=== PATIENT | male | born 1985 | race Caucasian/White ===

== ENCOUNTER 2023-04-03 08:20 | Outpatient (AMB) | payer BC, SELFPAY ==
--- NOTE | 2023-04-03 08:30 | MHC.PC.OV ---
Vital Signs 04/03/23 08:32 Height 5 ft 11 in Weight 183 lb 0.2 oz BMI 25.5 BP 122/70 Blood Pressure Location Lt brachial Position Sitting Pulse 71 Pulse Source Pulse Oximeter Temp Source Skin Pulse Oximetry (%) 100 Oxygen Delivery Method Room Air Intake Visit Reasons: New patient-Requesting physical Magnetic Resonance Imaging Director Required: No Allergies No Known Allergies Allergy (Verified 04/03/23 08:42) Medication List - Last Reconciled 04/03/23 by NARAYAN Levi No Known Home Meds Tobacco use date assessed: 04/03/23 Dental Screening Dental Screen Date: 04/03/23 Did you have a dental visit in the last 12 months?: Yes Did you have a dental problem in the last 6 months where you did not have access to dental care?: No Was dental information given to patient?: Patient has dentist HPI New patient-Requesting physical HPI Details Patient is a 37-year-old male presents today for physical exam as a new patient. Previous PCP in [place] couple years ago. Today we discussed patient's need for tetanus vaccine. Dental exam up-to-date. Denies eye issues, does not see eye doctor. Patient reports drinking alcohol only on weekends, not problem for him. He reports right hand lateral aspect cramping since 2008 - status post surgery when holding things and stiffness, pain worse with activity. Numbness or tingling. He also reports left neck skin mole long time now, has irregular borders. Also reports family history of bad posture, reports grandmother with osteoporosis. No shortness of breath or chest pain. [facility] Surgical History History of hand surgery Family History Mother History of leukemia Father Hypertension Bilateral bunions Social History Housing: House Patient Tobacco Use Status: Never used Tobacco service: Yes Current occupational status: employed Cognitive needs: No Hearing needs: No Vision needs: No Questionnaire PHQ-9 Over the last 2 weeks, how often have you been bothered by any of the following problems? 1. Little interest or pleasure in doing things: not at all 2. Feeling down, depressed, or hopeless: not at all 3. Trouble falling or staying asleep, or sleeping too much: not at all 4. Feeling tired or having little energy: not at all 5. Poor appetite or overeating: not at all 6. Feeling bad about yourself - or that you are a failure or have let yourself or your family down: not at all 7. Trouble concentrating on things, such as reading the newspaper or watching television: not at all 8. Moving or speaking so slowly that other people could have noticed. Or the opposite - being so fidgety or restless that you have been moving around a lot more than usual: not at all 9. Thoughts that you would be better off or of hurting yourself in some way: not at all Total score: 0 Depression Screening Interpretation: Negative Depression Screening Done: Yes 53924 - PHQ-9 Billing: Yes Source: Developed by Drs. Rashad Hernandez, Anel Blackman, Albert Lira and colleagues, with an educational alejandro from [employer]. Thrive Questionnaire Date Thrive assessed: 04/03/23 I am a: Patient What is your living situation today?: I have a steady place to live Within the past 12 months, did the food you bought not last and you didn't have the money to get more?: Never true Within the past 12 months, did you worry whether your food would run out before you got money to buy more?: Never true Do you have trouble paying for medicines?: No Do you have trouble getting transportation to medical appointments?: No Do you have trouble paying your heating and electricity bill?: No Do you have trouble taking care of your child, family member or friend?: No Do you have trouble with day-to-day activities such as bathing, preparing meals, shopping, managing finances, etc.?: No Are you currently unemployed and looking for a job?: No Are you interested in more education?: No Currently or been in a relationship where the following occur: no concerns reported AUDIT C Alcohol Use Questionnaire (AUDIT-C) 1. How often do you have a drink containing alcohol?: 2-4 times a month 2. How many drinks containing alcohol do you have on a typical day when you are drinking?: 3 or 4 3. How often do you have six or more drinks on one occasion?: Less than monthly Total Score: 4 Score Reviewed/Action Taken: Yes SHAREE-7 AMB Questionnaire SHAREE-7 Date SHAREE - 7 assessed: 04/03/23 Feeling nervous, anxious, or on edge: 0 = Not at all Not being able to stop or control worryin = Not at all Worrying too much about different things: 0 = Not at all Trouble relaxin = Not at all Being so restless that it is hard to sit still: 0 = Not at all Becoming easily annoyed or irritable: 0 = Not at all Feeling afraid as if something awful might happen: 0 = Not at all Total SHAREE-7 score (0-4 normal; 5-9 mild; 10-14 moderate; 15-21 severe): 0 Source: Developed by Drs. Rashad Hrenandez, Anel Blackman, Albert Lira and colleagues, with an educational alejandro from [employer]. SHAREE-7 Assessment Billing SHAREE-7 Assessment Tool: SHAREE-7 Assessment 93317 Review of Systems Const Denies body aches, Denies chills, Denies fever(s) and Denies headache(s) Eyes Denies change in vision ENT Denies dizziness, Denies otalgia, Denies headache(s), Denies nasal discharge, Denies sinus pain and Denies sore throat Card Denies chest pain, Denies edema, Denies lightheadedness and Denies dyspnea Resp Denies cough, Denies dyspnea and Denies wheezing GI Denies abdominal pain, Denies constipation, Denies diarrhea, Denies nausea and Denies vomiting Denies dysuria Musc Reports as per HPI, Denies myalgias, Reports arthralgias, Denies joint swelling, Denies numbness and Denies tingling Skin/Breast Reports rash Neuro Denies dizziness, Denies headache(s), Denies numbness and Denies tingling Aller/Immun Denies wheezing Physical exam (Primary Care) Vital Signs: Last Vital Signs Pulse 71 04/03/23 08:32 BP 122/70 04/03/23 08:32 Pulse Ox 100 04/03/23 08:32 Oxygen Delivery Method Room Air 04/03/23 08:32 BMI result Body Mass Index 25.5 Tobacco/Smoking Status: Tobacco use Status Tobacco use date assessed 04/03/23 04/03/23 08:38 Patient Tobacco Use Status Never used Tobacco 04/03/23 08:38 PHQ-9: PHQ-9 Score PHQ-9: Total score 0 04/03/23 08:58 Depression Screening Interpretation: Negative Thrive Assessment: Date of Thrive Assessment Date Thrive assessed 04/03/23 04/03/23 08:38 Currently or been in a relationship where the following occur: no concerns reported Const General: cooperative and no acute distress Orientation/consciousness: patient oriented x3 HENMT Head: Yes normocephalic and Yes atraumatic Ears: TM's normal bilaterally Face and sinus: Yes sinuses nontender Mouth: oropharynx normal and moist mucous membranes Throat: Yes posterior oropharynx normal Eyes General: appearance normal, both eyes and all related structures Pupils: Equal, round and reactive pupils present EOM: EOMs intact bilaterally Neck Neck: Yes normal visual inspection, Yes full ROM and Yes no lymphadenopathy Thyroid: Thyroid normal Resp Effort & Inspection: normal respiratory effort and able to speak in complete sentences Auscultation: clear to auscultation bilaterally, no crackles, no rales, no rhonchi and no wheezes Cardio Rate: regular rate Rhythm: regular rhythm Heart sounds: S1 normal heart sound present, S2 normal heart sound present and no murmurs GI Palpation (GI): Soft to palpation, not firm, nontender, no guarding, not rigid and no hepatosplenomegaly Auscultation: normal bowel sounds General: No CVA tenderness Back/Spine/Pelvis Back: No CVA tenderness Skin Other: Left neck skin mole with irregular borders about 5mm in diameter Neuro General: patient oriented x3 Cranial nerves: Yes Equal, round and reactive pupils present Gait exam (Neuro): Normal gait present Extrem Other: Right hand normal to inspection, nontender, skin is intact General: Yes full ROM and No edema Immunizations Boostrix Tdap 2.5 Lf unit-8 mcg-5 Lf/0.5 mL intramuscular syringe Performing Provider: NARAYAN Levi [facility] Administered by: ANAIS Menendez on 04/03/23 08:58 Dose Route Admin Location Dispensed Lot Number Expiration Date NDC Development Writer 0.5 mL IM Left Deltoid 0.5 mL [id number] 07/03/25 [id number] nap- Naturally Attached Parents VIS Given Date VIS Provided VIS Publication Date 04/03/23 Single Vaccine 21 Eligibility Eligibility Date Funding Source Not [facility] Eligible 04/03/23 Private Assessment and Plan Assessment & Plan (1) Skin mole: Code(s): D22.9 - Melanocytic nevi, unspecified Plan: Dermatology referral for an evaluation and treatment (2) Right hand pain: Code(s): M79.641 - Pain in right hand Plan: Will obtain x-ray OT referral (3) Adult general medical exam: Code(s): Z00.00 - Encounter for general adult medical examination without abnormal findings Plan: Repeat in 1 year Blood work ordered Orders: Orders Vitamin D 25-OH Total 04/03/23 Z00.00 - Encounter for general adult medical examination without abnormal findings Vitamin B12 and Folate 04/03/23 Z00.00 - Encounter for general adult medical examination without abnormal findings Lipid Panel 04/03/23 Z00.00 - Encounter for general adult medical examination without abnormal findings XR hand RT min 3V 04/03/23 M79.641 - Pain in right hand TSH reflex Free T4 04/03/23 Z00.00 - Encounter for general adult medical examination without abnormal findings Comprehensive [place]. Panel Fast 04/03/23 Z00.00 - Encounter for general adult medical examination without abnormal findings Complete Blood Count Auto Diff 04/03/23 Z00.00 - Encounter for general adult medical examination without abnormal findings OT Evaluation and Treatment 04/03/23 M79.641 - Pain in right hand TDaP Immunization 04/03/23 Z23 - Encounter for immunization Referrals Dermatology Referral D22.9 - Melanocytic nevi, unspecified Coding Level of Care Code New Pt Prev Care 18-39yr(40291 Diagnoses Skin mole D22.9 Right hand pain M79.641 Adult general medical exam Z00.00 Additional Codes SHAREE-7 Assessment Billing - SHAREE-7 Assessment Tool: SHAREE-7 Assessment [id number] ([id number])
[2023-04-03 08:32] VITALS: BP 122/70; PULSE 71; O2SAT 100; BMI 25.5
== END 2023-04-03 09:10 | disposition home or self-care (01) ==
PROVIDERS: PCP Nurse Practitioner Family; Visit Provider Nurse Practitioner Family
DX: D22.9 Melanocytic nevi, unspecified (principal); M79.641 Pain in right hand; Z00.00 Encounter for general adult medical examination without abnormal findings
CPT/HCPCS: 90471; 90715; 99385

== ENCOUNTER 2023-08-17 13:05 | Outpatient (AMB) | payer BC, SELFPAY ==
--- NOTE | 2023-08-17 13:07 | MHC.PC.OV ---
Vital Signs 08/17/23 13:22 Height 5 ft 11 in Weight 177 lb 8 oz BMI 24.8 BP 125/73 Blood Pressure Location Rt brachial Position Sitting Respiration 12 Pulse 72 Pulse Source Pulse Oximeter Temp 98.8 F Temp Source Temporal Artery Scan Pulse Oximetry (%) 100 Intake Visit Reasons: Transfer of Care from DARIEN August/Chris review Intake Note: Patient is here for a transfer of care from Dr. August in [place]. Patient reports he was referred to dermatology as well as an xray order and he did not completes those things. Credit Reporting Clerk Required: No Accompanied by: Self / Same As Patient Allergies No Known Allergies Allergy (Verified 08/17/23 13:49) Tobacco use date assessed: 08/17/23 Dental Screening Dental Screen Date: 08/17/23 Did you have a dental visit in the last 12 months?: Yes Did you have a dental problem in the last 6 months where you did not have access to dental care?: No Was dental information given to patient?: Patient has dentist HPI HPI Comments History of Present Illness Details 37 year old M with Reyanuds, marijuana user otherwise well. Former [facility] Multiple joint injuries in the past some that required surgery. Health Maintenance: Vaccines: declines Flu, otherwise UTD Labs - none recent Specialists: Referred to Alina [facility] Here today to est care and for CPE Reports routine dental care No eye concerns [facility] Medical History No pertinent past medical history Surgical History History of hand surgery Family History Mother History of leukemia Mental health disorder Substance use disorder Father Hypertension Bilateral bunions Substance use disorder Social History Household Members: Spouse and Children Housing: House 75 years or older and lives alone: No Alcohol intake: current Alcohol intake frequency: holidays/special occasions only Patient Tobacco Use Status: Current everyday Tobacco user Tobacco use type: Smokeless Tobacco e-Cigarette/Vaping Use: Never Used Substance Use Type: Marijuana service: Yes Current occupational status: employed Current occupation: [employer] Sexual orientation: Straight/Heterosexual Gender identity: Male Cognitive needs: No Hearing needs: No Vision needs: No Questionnaire PHQ-9 Over the last 2 weeks, how often have you been bothered by any of the following problems? 1. Little interest or pleasure in doing things: not at all 2. Feeling down, depressed, or hopeless: not at all 3. Trouble falling or staying asleep, or sleeping too much: not at all 4. Feeling tired or having little energy: not at all 5. Poor appetite or overeating: not at all 6. Feeling bad about yourself - or that you are a failure or have let yourself or your family down: not at all 7. Trouble concentrating on things, such as reading the newspaper or watching television: not at all 8. Moving or speaking so slowly that other people could have noticed. Or the opposite - being so fidgety or restless that you have been moving around a lot more than usual: not at all 9. Thoughts that you would be better off or of hurting yourself in some way: not at all Total score: 0 Depression Screening Interpretation: Negative Depression Screening Done: Yes 94131 - PHQ-9 Billing: Yes Source: Developed by Drs. Rashad Hernandez, Anel Blackman, Albert Lira and colleagues, with an educational alejandro from [employer]. Thrive Questionnaire Date Thrive assessed: 08/17/23 I am a: Patient What is your living situation today?: I have a steady place to live Within the past 12 months, did the food you bought not last and you didn't have the money to get more?: Never true Within the past 12 months, did you worry whether your food would run out before you got money to buy more?: Never true Do you have trouble paying for medicines?: No Do you have trouble getting transportation to medical appointments?: No Do you have trouble paying your heating and electricity bill?: No Do you have trouble taking care of your child, family member or friend?: No Do you have trouble with day-to-day activities such as bathing, preparing meals, shopping, managing finances, etc.?: No Are you currently unemployed and looking for a job?: No Are you interested in more education?: No Please select the resources that you would like help with: None Currently or been in a relationship where the following occur: no concerns reported THRIVE Score: 0 AUDIT C Alcohol Use Questionnaire (AUDIT-C) 1. How often do you have a drink containing alcohol?: Monthly or less 3. How often do you have six or more drinks on one occasion?: Never Total Score: 1 SHAREE-7 AMB Questionnaire SHAREE-7 Date SHAREE - 7 assessed: 08/17/23 Feeling nervous, anxious, or on edge: 0 = Not at all Not being able to stop or control worryin = Not at all Worrying too much about different things: 0 = Not at all Trouble relaxin = Not at all Being so restless that it is hard to sit still: 0 = Not at all Becoming easily annoyed or irritable: 0 = Not at all Feeling afraid as if something awful might happen: 0 = Not at all Total SHAREE-7 score (0-4 normal; 5-9 mild; 10-14 moderate; 15-21 severe): 0 Source: Developed by Drs. Rashad Hernandez, Anel Blackman, Albert Lira and colleagues, with an educational alejandro from [employer]. SHAREE-7 Assessment Billing SHAREE-7 Assessment Tool: SHAREE-7 Assessment 55003 Review of Systems Const Details: Constitutional: Denies fever. Skin: Denies rash. Eye: Denies eye pain. ENMT: Denies sore throat and nasal congestion. Respiratory: Denies shortness of breath and cough. Gastrointestinal: Denies nausea, vomiting or abdominal pain. Cardiovascular: Denies chest pain and syncope. Genitourinary: Denies dysuria. Musculoskeletal: Chronic multi joint pain. History of multiple joint injuries. Neurologic: Denies headaches, confusion, and weakness. Psychiatric: Denies suicidal thoughts and substance abuse. Allergy/ Immunologic: Denies impaired immunity. Physical exam (Primary Care) Vital Signs: Last Vital Signs Temp 98.8 F 08/17/23 13:22 Pulse 72 08/17/23 13:22 Resp 12 08/17/23 13:22 BP 125/73 08/17/23 13:22 Pulse Ox 100 08/17/23 13:22 BMI result Body Mass Index 24.8 Tobacco/Smoking Status: Tobacco use Status Tobacco use date assessed 08/17/23 08/17/23 13:32 Patient Tobacco Use Status Current everyday Tobacco 08/17/23 13:37 Tobacco use type Smokeless Tobacco 08/17/23 13:37 e-Cigarette/Vaping Use Never Used 08/17/23 13:37 PHQ-9: PHQ-9 Score PHQ-9: Total score 0 08/17/23 13:47 Depression Screening Interpretation: Negative Thrive Assessment: Date of Thrive Assessment Date Thrive assessed 08/17/23 08/17/23 13:39 Currently or been in a relationship where the following occur: no concerns reported Const Other: General: Well developed, well nourished, in no acute distress. Appears stated age. Head: Normocephalic, atraumatic. Eyes: Pupils are equal, round and reactive to light and accommodation. Conjunctivae are clear. Vision grossly normal. Ears: TMs clear AU, EACS WNL Nose: Patent, without discharge. Mouth: There are no ulcers or lesions noted. No inflammation, no post nasal drip, no plaques nor exudates. Neck: Supple, no adenopathy or thyromegaly. Lungs: Clear to auscultation bilaterally. No rales, rhonchi or wheeze noted. Good air flow in all rothman. Heart: Regular rate and rhythm. No murmurs, click, rubs or gallops are noted. Abdomen: Bowel sounds present in all quadrants. The abdomen is soft, nontender, with no masses or organomegaly noted. No hernias are noted. Musculoskeletal: Joints are nontender, without swelling, redness, or effusions. Range of motion is observed to be normal. Pulses: Peripheral pulses are equal and palpable bilaterally. Extremities: No clubbing, cyanosis nor edema is noted. Neurologic: Gait and station normal. Cranial Nerves 2-12 intact. Motor strength grossly symmetrical and intact. No sensory loss. Balance normal. Skin: No rashes, ulcers, or lesions noted. Turgor is good. Skin color is good. Hair and nails are without abnormalities. Psych: Normal eye contact, affect and mood appropriate, and normal interactions. Patient is alert and appropriate to context. Assessment and Plan Assessment & Plan (1) Adult general medical exam: Code(s): Z00.00 - Encounter for general adult medical examination without abnormal findings (2) Laboratory exam ordered as part of routine general medical examination: Code(s): Z00.00 - Encounter for general adult medical examination without abnormal findings (3) Skin mole: Comment: Active referral in place for [facility]. Code(s): D22.9 - Melanocytic nevi, unspecified (4) Marijuana use: Comment: Current use. Code(s): F12.90 - Cannabis use, unspecified, uncomplicated Orders: Orders Microalbumin, Random (w Creat) Today Z00.00 - Encounter for general adult medical examination without abnormal findings TSH reflex Free T4 Today Z00.00 - Encounter for general adult medical examination without abnormal findings UA w Microscopic Today Z00.00 - Encounter for general adult medical examination without abnormal findings Comprehensive Taylor. Panel Fast Today Z00.00 - Encounter for general adult medical examination without abnormal findings Lipid Panel Today Z00.00 - Encounter for general adult medical examination without abnormal findings Patient Instructions: Health screenings for men ages 40 to 64 You should visit your health care provider regularly, even if you feel healthy. The purpose of these visits is to: Screen for medical issues Assess your risk for future medical problems Encourage a healthy lifestyle Update vaccinations and other preventive care services Help you get to know your provider in case of an illness Information Even if you feel fine, you should still see your provider for regular checkups. These visits can help you avoid problems in the future. For example, the only way to find out if you have high blood pressure is to have it checked regularly. High blood sugar and high cholesterol level also may not have any symptoms in the early stages. Simple blood tests can check for these conditions. There are specific times when you should see your provider or receive specific health screenings. The [place] Preventive Services Task Force publishes a list of recommended screenings. Below are screening guidelines for men ages 40 to 64. BLOOD PRESSURE SCREENING Have your blood pressure checked at least once every year. Watch for blood pressure screenings in your area. Ask your provider if you can stop in to have your blood pressure checked. Ask your provider if you need your blood pressure checked more often if: You have diabetes, heart disease, kidney problems, or are overweight or have certain other health conditions You have a first-degree relative with high blood pressure You are Black Your blood pressure top number is from 120 to 129 mm Hg, or the bottom number is from 70 to 79 mm Hg If the top number is 130 mm Hg or greater or the bottom number is 80 mm Hg or greater, this is considered stage 1 hypertension. Schedule an appointment with your provider to learn how you can lower your blood pressure. Effects of age on blood pressure CHOLESTEROL SCREENING Cholesterol screening should begin at age 35 for men with no known risk factors for coronary heart disease. Repeat cholesterol screening should take place: Every 5 years for men with normal cholesterol levels More often if changes occur in lifestyle (including weight gain and diet) More often if you have diabetes, heart disease, kidney problems, or certain other conditions COLORECTAL CANCER SCREENING If you are under age 45, talk to your provider about getting screened. You may need to be screened if you have a strong family history of colon cancer or polyps. Screening may also be considered if you have risk factors such as a history of inflammatory bowel disease or polyps. If you are age 45 to 75, you should be screened for colorectal cancer. There are several screening tests available: A stool-based fecal occult blood (gFOBT) or fecal immunochemical test (FIT) every year A stool sDNA test every 1 to 3 years Flexible sigmoidoscopy every 5 years or every 10 years with stool testing FIT done every year CT colonography (virtual colonoscopy) every 5 years Colonoscopy every 10 years You may need a colonoscopy more often if you have risk factors for colorectal cancer, such as: Ulcerative colitis A personal or family history of colorectal cancer A history of growths in your colon called adenomatous polyps DENTAL EXAM Go to the dentist once or twice every year for an exam and cleaning. Your dentist will evaluate if you have a need for more frequent visits. DIABETES SCREENING All adults who do not have risk factors for diabetes should be screened starting at age 35 and repeated every 3 years. If you have other risk factors for diabetes, such as a first degree relative with diabetes, overweight or obesity, high blood pressure, prediabetes, or a history of heart disease, you may be tested more often. If you are overweight and have other risk factors, such as high blood pressure and are planning to become , screening is recommended. EYE EXAM Have an eye exam every 2 to 4 years ages 40 to 54 and every 1 to 3 years ages 55 to 64. Your provider may recommend more frequent eye exams if you have vision problems or glaucoma risk. Have an eye exam that includes an examination of your retina (back of your eye) at least every year if you have diabetes. IMMUNIZATIONS Commonly needed vaccines include: Flu shot: get one every year COVID-19 vaccine: ask your provider what is best for you Tetanus-diphtheria and acellular pertussis (Tdap) vaccine: have as one of your tetanus-diphtheria vaccines if you did not receive it as an adolescent Tetanus-diphtheria: have a booster (or Tdap) every 10 years Varicella vaccine: receive 2 doses if you never had chickenpox or the varicella vaccine and were born in 1980 or after Hepatitis B vaccine: receive 2, 3, or 4 doses, depending on your exact circumstances, if you did not receive these as a child or adolescent, until age 59 Shingles (herpes zoster) vaccine: at or after age 50 Ask your provider if you should receive other immunizations, especially if you have certain medical conditions, such as diabetes or are at increased risk for some diseases such as pneumonia. INFECTIOUS DISEASE SCREENING Screening for hepatitis C: all adults ages 18 to 79 should get a one-time test for hepatitis C. Screening for human immunodeficiency virus (HIV): all people ages 15 to 65 should get a one-time test for HIV. Depending on your lifestyle and medical history, you may need to be screened for infections such as syphilis, chlamydia, and other infections. LUNG CANCER SCREENING You should have an annual screening for lung cancer with low-dose computed tomography (LDCT) if: You are age 50 to 80 years AND You have a 20 pack-year smoking history AND You currently smoke or have quit within the past 15 years OSTEOPOROSIS SCREENING If you are age 50 to 64 and have risk factors for osteoporosis, you should discuss screening with your provider. Risk factors can include long-term steroid use, low body weight, smoking, heavy alcohol use, having a fracture after age 50, or a family history of hip fracture or osteoporosis. Osteoporosis PHYSICAL EXAM All adults should visit their provider from time to time, even if they are healthy. The purpose of these visits is to: Screen for diseases Assess risk of future medical problems Encourage a healthy lifestyle Update vaccinations and other preventive care services Maintain a relationship with a provider in case of an illness Your height, weight, and body mass index (BMI) should be checked at every exam. During your exam, your provider may ask you about: Depression and anxiety Diet and exercise Alcohol and tobacco use Safety, such as use of seat belts and smoke detectors Your medicines and risk for interactions PROSTATE CANCER SCREENING If you're 55 through 69 years old, before having the test, talk to your provider about the pros and cons of having a PSA test. Ask about: Whether screening decreases your chance of dying from prostate cancer. Whether there is any harm from prostate cancer screening, such as side effects from testing or overtreatment of cancer when discovered. Whether you have a higher risk of prostate cancer than others. If you are age 55 or younger, screening is not generally recommended. You should talk with your provider about if you have a higher risk for prostate cancer. Risk factors include: Having a family history of prostate cancer (especially a brother or father) Being If you choose to be tested, the PSA blood test is repeated over time (yearly or less often), though the best frequency is not known. Prostate examinations are no longer routinely done on men with no symptoms. Prostate cancer SKIN EXAM Your provider may check your skin for signs of skin cancer, especially if you're at high risk. People at high risk include those who have had skin cancer before, have close relatives with skin cancer, or have a weakened immune system. TESTICULAR EXAM The [place] Preventive Services Task Force (USPSTF) now recommends against performing testicular self-exams. Doing testicular self-exams has been shown to have little to no benefit. Review Flu Vaccine not done: patient reason Coding Level of Care Code Est Pt Prev Care 18-39y(83347) Diagnoses Adult general medical exam Z00.00 Laboratory exam ordered as part of routine general medical examination Z00.00 Skin mole D22.9 Marijuana use F12.90 Additional Codes SHAREE-7 Assessment Billing - SHAREE-7 Assessment Tool: SHAREE-7 Assessment 78387 ([id number])
[2023-08-17 13:22] VITALS: BP 125/73; PULSE 72; RESP 12; TEMP 37.1; O2SAT 100; BMI 24.8
== END 2023-08-17 14:02 | disposition home or self-care (01) ==
PROVIDERS: PCP Nurse Practitioner Family; Visit Provider Nurse Practitioner Family
DX: Z00.00 Encounter for general adult medical examination without abnormal findings (principal); D22.9 Melanocytic nevi, unspecified; F12.90 Cannabis use, unspecified, uncomplicated
CPT/HCPCS: 99395

== ENCOUNTER 2023-08-24 08:49 | Outpatient (REF) | payer BC, SELFPAY ==
[2023-08-24 11:20] LABS: Appearance Urine Clear; Color Urine Yellow; Glucose Urine UA Negative (Negative); Leukocyte Esterase Urine Negative (Negative); Nitrite Urine Negative (Negative); Specific Gravity - Urine <= 1.005 (1.005-1.025); Urine Blood Negative (Negative); Urine Ketones Negative (Negative); Urine Protein Negative (Neg-Trace)
[2023-08-24 11:28] LABS: Bacteria Urine None Seen (None Seen); Hyaline Casts Urine 0-2 /LPF (0-2); RBC Urine 0-2 /HPF (0-2); Squamous Epithelial Cell Urine 0-2 /HPF (0-2); WBC Urine 0-5 /HPF (0-5)
[2023-08-24 12:11] LABS: Alanine Aminotransferase 27 U/L (0-40); Albumin Level 4.3 g/dL (3.5-5.0); Alkaline Phosphatase 84 U/L (39-117); Anion Gap 10 (12-20); Aspartate Amino Transferase 30 U/L (5-37); Bilirubin Total 0.3 mg/dL (0.0-1.0); Blood Urea Nitrogen 14 mg/dL (9-16); Calcium 9.3 mg/dL (8.4-10.2); Carbon Dioxide 30 mmol/L (22-29); Chloride 106 mmol/L (96-108); Cholesterol 139 mg/dL (<200); Estimated Glomerular Filt Rate > 60; Glucose Fasting 93 mg/dL (60-99); HDL Cholesterol 43 mg/dL (>40); LDL Cholesterol Calculated 87 mg/dL (<100); Potassium 4.3 mmol/L (3.3-5.1); Sodium 142 mmol/L (135-145); Total Protein 7.1 g/dL (6.5-8.0); Triglycerides 47 mg/dL (<150)
[2023-08-24 12:16] LABS: TSH reflex Free T4 1.67 uIU/mL (0.32-4.0)
[2023-08-24 12:49] LABS: Creatinine Urine 14.55 mg/dL; Microalbumin Urine < 5.0 mg/L
== END 2023-08-24 08:50 | disposition home or self-care (01) ==
LOC: HO.WFDLDS 08:49
PROVIDERS: Visit Provider Nurse Practitioner Family
DX: Z00.00 Encounter for general adult medical examination without abnormal findings (principal); Z13.6 Encounter for screening for cardiovascular disorders
CPT/HCPCS: 36415; 80053; 80061; 81001; 82043; 82570; 84443

== ENCOUNTER 2024-08-17 07:49 | Outpatient (AMB) | payer BC, SELFPAY ==
--- NOTE | 2024-08-17 07:52 | A.OFFPC_ITS ---
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 Former [place]. [facility] Multiple joint injuries in the past some that required surgery. s/p mole left neck removed - benign Specialists: Alina Gresham no longer ff'd OT - referral - The patient is a 38-year-old male pres enting for a complete physical examination. His past medical history includes Raynaud's phenomenon, a condition that limits blood flow, generally triggered by cold or emotional stress. There have been no significant changes or recent exacerbations noted. - He experiences persistent pain in his R hand that has not been addressed further since last discussed. The pain affects his ability to perform tasks, and he has contemplated applying for disability due to this issue. - During the past year, he has noticed i ncreased feelings of tiredness, particularly worsening by late afternoon after completing work activities and caring for his children. He attributes the fatigue and accompanying frustration to stress, raising the possibility of untreated ADHD. - He underwent removal of a benign skin lesion last year R neck - The patient's father recen tl due to a heart-related condition, though specific details are not known. The father led a reclusive lifestyle and had unhealthy eating habits. Past Surgical History - Benign skin lesion removal. Family History - Father: in June, possibly heart-related conditions. 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 Reports feeling irritation with the repetitive nature of his work. - Family: with children. Partici pates in morning routines and childcare. - Substance use: Reports marijuana use. - Exercise: Engages in daily exercise. - Nutrition: Father's dietary habits inc luded smoking and consuming frozen pizzas. Health Maintenance - Last laboratory results (from last yea r) were within normal limits. - Review of allergies and confirmation o f up-to-date immunizations. - Declined flu vaccination. Tdap UTD - Discussed potential for mental health evaluation and interventions for suspected ADHD. Reports routine dental care No eye concerns Review of Systems - Neurological: Reports tiredness and ea sy frustration, possibly related to stress. - Musculoskeletal: Denies new or worseni ng symptoms aside from hand pain. - Psychiatric: Denies anxiety and depres sundeep, notes possible ADHD. Physical Exam General: Well developed, well nourished, in no acute distress. Appears stated age. Head: Normocephalic, atraumatic. Eyes: Pupils are equal, round and reactive to light and accommodation. Conjunctivae are clear. Vision grossly normal. Ears: TMs clear AU, EACS WNL Nose: Patent, without discharge. Neck: Supple, no adenopathy or thyromegaly. Breast: Edu on SBE Lungs: Clear to auscultation bilaterally. No rales, rhonchi or wheeze noted. Good air flow in all rothman. Heart: Regular rate and rhythm. No murmurs, click, rubs or gallops are noted. Abdomen: Bowel sounds present in all quadrants. The abdomen is soft, nontender, with no masses or organomegaly noted. No hernias are noted. : Deferred. Reviewed BEATRICE Pulses: Peripheral pulses are equal and palpable bilaterally. Extremities: No clubbing, cyanosis nor edema is noted. Reports having Raynaud's phenomenon. Neurologic: Gait and station normal. Cranial Nerves 2-12 intact. Motor strength grossly symmetrical and intact. No sensory loss. Balance normal. Skin: No rashes, ulcers, or lesions noted. Turgor is good. Skin color is good. Hair and nails are without abnormalities. Psych: Normal eye contact, affect and mood appropriate, and normal interactions. Patient is alert and appropriate to context. Discussion Notes I explained the potential link between the patient's described symptoms and possible untreated ADHD, highlighting that the condition often results in simultaneous overactivity in mental processing and organization, which could explain his exhaustion after long days. We discussed the options for non- stimulant and stimulant treatments for ADHD, including benefits and drawbacks of each. The patient expressed interest, particularly with non-stimulant options like Strattera, and will consider further review before deciding on treatment. 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 We also reviewed the possibility of occupational therapy for his hand to improve its functionality and alleviate pain. Assessment and Plan 1. Raynaud's Phenomenon: No changes in s ymptoms noted; continue monitoring without plan change. 2. Hand Pain R: Refer to OT at [facility] [place] 3. Possible Untreated ADHD: Non-stimulan t medication, Strattera, discussed as an option; patient to decide after further research. 4. Cannabis Use: Advised moderation; no further actions required unless symptoms develop. Patient Instructions - Review information on Strattera for po tential ADHD treatment. - Continue monitoring hand pain, attend occupational therapy as referred. - Consider lifestyle adjustments to opti joaquina health and energy levels. - Report any new or worsening symptoms p romptly. - RTO 1 year CPE sooner prn Consent The patient consented to the referral for occupational therapy for hand pain management. Information about the potential benefits, risks, and alternatives to therapy was provided and understood. The patient will further investigate ADHD treatment options before consenting to medication. Patient was informed and verbally consented to the use of an ambient scribe for clinic note documentation during this visit. [facility] Medical History No pertinent past medical history Surgical History History of hand surgery Family History Mother History of leukemia Mental health disorder Substance use disorder Father Hypertension Bilateral bunions Substance use disorder Social History Household Members: Spouse and Children Housing: House 75 years or older and lives alone: No Alcohol intake: current Alcohol intake frequency: holidays/special occasions only Patient Tobacco Use Status: Current everyday Tobacco user Tobacco use type: Smokeless Tobacco e-Cigarette/Vaping Use: Never Used Substance Use Type: Marijuana service: Yes Current occupational status: employed Current occupation: [employer] Sexual orientation: Straight/Heterosexual Gender identity: Male Cognitive needs: No Hearing needs: No Vision needs: No Questionnaire PHQ-9 Over the last 2 weeks, how often have you been bothered by any of the following problems? 1. Little interest or pleasure in doing things: not at all 2. Feeling down, depressed, or hopeless: not at all 3. Trouble falling or staying asleep, or sleeping too much: not at all 4. Feeling tired or having little energy: several days 5. Poor appetite or overeating: not at all 6. Feeling bad about yourself - or that you are a failure or have let yourself or your family down: not at all 7. Trouble concentrating on things, such as reading the newspaper or watching television: not at all 8. Moving or speaking so slowly that other people could have noticed. Or the opposite - being so fidgety or restless that you have been moving around a lot more than usual: not at all 9. Thoughts that you would be better off or of hurting yourself in some way: not at all Total score: 1 Depression Screening Interpretation: Negative Depression Screening Done: Yes 33427 - PHQ-9 Billing: Yes Source: Developed by Drs. Rashad Hernandez, Anel Blackman, Albert Lira and colleagues, with an educational alejandro from [employer]. Thrive Questionnaire Date Thrive assessed: 08/17/24 I am a: Patient What is your living situation today?: I have a steady place to live Within the past 12 months, did the food you bought not last and you didn't have the money to get more?: Never true Within the past 12 months, did you worry whether your food would run out before you got money to buy more?: Never true Do you have trouble paying for medicines?: No Do you have trouble getting transportation to medical appointments?: No Do you have trouble paying your heating and electricity bill?: No Do you have trouble taking care of your child, family member or friend?: No Do you have trouble with day-to-day activities such as bathing, preparing meals, shopping, managing finances, etc.?: No Are you currently unemployed and looking for a job?: No Are you interested in more education?: No Please select the resources that you would like help with: None Currently or been in a relationship where the following occur: No concerns reported THRIVE Score: 0 AUDIT C Alcohol Use Questionnaire (AUDIT-C) 1. How often do you have a drink containing alcohol?: 2-4 times a month 2. How many drinks containing alcohol do you have on a typical day when you are drinking?: 1 or 2 3. How often do you have six or more drinks on one occasion?: Less than monthly Total Score: 3 Score Reviewed/Action Taken: Yes SHAREE-7 AMB Questionnaire SHAREE-7 Date SHAREE - 7 assessed: 08/17/24 Feeling nervous, anxious, or on edge: 0 = Not at all Not being able to stop or control worryin = Not at all Worrying too much about different things: 0 = Not at all Trouble relaxin = Several days Being so restless that it is hard to sit still: 0 = Not at all Becoming easily annoyed or irritable: 1 = Several days Feeling afraid as if something awful might happen: 0 = Not at all Total SHAREE-7 score (0-4 normal; 5-9 mild; 10-14 moderate; 15-21 severe): 2 Source: Developed by Drs. Rashad Hernandez, Anel Blackman, Albert Lira and colleagues, with an educational alejandro from [employer]. SHAREE-7 Assessment Billing SHAREE-7 Assessment Tool: SHAREE-7 Assessment 82974 Physical exam (Primary Care) Vital Signs: Last Vital Signs Temp 96.9 F 08/17/24 08:01 Pulse 55 08/17/24 08:01 Resp 12 08/17/24 08:01 BP 122/72 08/17/24 08:01 Pulse Ox 98 08/17/24 08:01 Oxygen Delivery Method Room Air 08/17/24 08:01 BMI result Body Mass Index 26.7 Tobacco/Smoking Status: Tobacco use Status Tobacco use date assessed 08/17/24 08/17/24 07:59 Patient Tobacco Use Status Current everyday Tobacco 08/17/24 07:53 Tobacco use type Smokeless Tobacco 08/17/24 07:53 e-Cigarette/Vaping Use Never Used 08/17/24 07:53 PHQ-9: PHQ-9 Score PHQ-9: Total score 1 08/17/24 08:09 Depression Screening Interpretation: Negative Thrive Assessment: Date of Thrive Assessment Date Thrive assessed 08/17/24 08/17/24 07:59 Currently or been in a relationship where the following occur: No concerns reported Coding Level of Care Code Est Pt Prev Care 18-39y(50742) Diagnoses Adult general medical exam Z00.00 Right hand pain M79.641 Influenza vaccination declined Z28.21 Additional Codes SHAREE-7 Assessment Billing - SHAREE-7 Assessment Tool: SHAREE-7 Assessment 49055 ([id number]) PHQ-9 - 99147 - PHQ-9 Billing: Yes ([id number]) Assessment & Plan Assessment & Plan (1) Adult general medical exam: Code(s): Z00.00 - Encounter for general adult medical examination without abnormal findings Category: Medical (2) Right hand pain: Code(s): M79.641 - Pain in right hand Category: Medical (3) Influenza vaccination declined: Code(s): Z28.21 - Immunization not carried out because of patient refusal Plan . Orders: Orders OT Evaluation and Treatment Today M79.641 - Pain in right hand Patient Instructions: Straterra - nonstimulant for ADHD Health screenings for men You should visit your health care provider regularly, even if you feel healthy. The purpose of these visits is to: Screen for medical issues Assess your risk for future medical problems Encourage a healthy lifestyle Update vaccinations and other preventive care services Help you get to know your provider in case of an illness Information Even if you feel fine, you should still see your provider for regular checkups. These visits can help you avoid problems in the future. For example, the only way to find out if you have high blood pressure is to have it checked regularly. High blood sugar and high cholesterol level also may not have any symptoms in the early stages. Simple blood tests can check for these conditions. There are specific times when you should see your provider or receive specific health screenings. The [place] Preventive Services Task Force publishes a list of recommended screenings. Below are screening guidelines for men ages 40 to 64. BLOOD PRESSURE SCREENING Have your blood pressure checked at least once every year. Watch for blood pressure screenings in your area. Ask your provider if you can stop in to have your blood pressure checked. Ask your provider if you need your blood pressure checked more often if: You have diabetes, heart disease, kidney problems, or are overweight or have certain other health conditions You have a first-degree relative with high blood pressure You are Black Your blood pressure top number is from 120 to 129 mm Hg, or the bottom number is from 70 to 79 mm Hg If the top number is 130 mm Hg or greater or the bottom number is 80 mm Hg or greater, this is considered stage 1 hypertension. Schedule an appointment with your provider to learn how you can lower your blood pressure. Effects of age on blood pressure CHOLESTEROL SCREENING Cholesterol screening should begin at age 35 for men with no known risk factors for coronary heart disease. Repeat cholesterol screening should take place: Every 5 years for men with normal cholesterol levels More often if changes occur in lifestyle (including weight gain and diet) More often if you have diabetes, heart disease, kidney problems, or certain other conditions COLORECTAL CANCER SCREENING If you are under age 45, talk to your provider about getting screened. You may need to be screened if you have a strong family history of colon cancer or polyps. Screening may also be considered if you have risk factors such as a history of inflammatory bowel disease or polyps. If you are age 45 to 75, you should be screened for colorectal cancer. There are several screening tests available: A stool-based fecal occult blood (gFOBT) or fecal immunochemical test (FIT) every year A stool sDNA test every 1 to 3 years Flexible sigmoidoscopy every 5 years or every 10 years with stool testing FIT done every year CT colonography (virtual colonoscopy) every 5 years Colonoscopy every 10 years You may need a colonoscopy more often if you have risk factors for colorectal cancer, such as: Ulcerative colitis A personal or family history of colorectal cancer A history of growths in your colon called adenomatous polyps DENTAL EXAM Go to the dentist once or twice every year for an exam and cleaning. Your dentist will evaluate if you have a need for more frequent visits. DIABETES SCREENING All adults who do not have risk factors for diabetes should be screened starting at age 35 and repeated every 3 years. If you have other risk factors for diabetes, such as a first degree relative with diabetes, overweight or obesity, high blood pressure, prediabetes, or a history of heart disease, you may be tested more often. If you are overweight and have other risk factors, such as high blood pressure and are planning to become , screening is recommended. EYE EXAM Have an eye exam every 2 to 4 years ages 40 to 54 and every 1 to 3 years ages 55 to 64. Your provider may recommend more frequent eye exams if you have vision problems or glaucoma risk. Have an eye exam that includes an examination of your retina (back of your eye) at least every year if you have diabetes. IMMUNIZATIONS Commonly needed vaccines include: Flu shot: get one every year COVID-19 vaccine: ask your provider what is best for you Tetanus-diphtheria and acellular pertussis (Tdap) vaccine: have as one of your tetanus-diphtheria vaccines if you did not receive it as an adolescent Tetanus-diphtheria: have a booster (or Tdap) every 10 years Varicella vaccine: receive 2 doses if you never had chickenpox or the varicella vaccine and were born in 1979 or after Hepatitis B vaccine: receive 2, 3, or 4 doses, depending on your exact circumstances, if you did not receive these as a child or adolescent, until age 59 Shingles (herpes zoster) vaccine: at or after age 50 Ask your provider if you should receive other immunizations, especially if you have certain medical conditions, such as diabetes or are at increased risk for some diseases such as pneumonia. INFECTIOUS DISEASE SCREENING Screening for hepatitis C: all adults ages 18 to 79 should get a one-time test for hepatitis C. Screening for human immunodeficiency virus (HIV): all people ages 15 to 65 should get a one-time test for HIV. Depending on your lifestyle and medical history, you may need to be screened for infections such as syphilis, chlamydia, and other infections. LUNG CANCER SCREENING You should have an annual screening for lung cancer with low-dose computed tomography (LDCT) if: You are age 50 to 80 years AND You have a 20 pack-year smoking history AND You currently smoke or have quit within the past 15 years OSTEOPOROSIS SCREENING If you are age 50 to 64 and have risk factors for osteoporosis, you should discuss screening with your provider. Risk factors can include long-term steroid use, low body weight, smoking, heavy alcohol use, having a fracture after age 50, or a family history of hip fracture or osteoporosis. Osteoporosis PHYSICAL EXAM All adults should visit their provider from time to time, even if they are healthy. The purpose of these visits is to: Screen for diseases Assess risk of future medical problems Encourage a healthy lifestyle Update vaccinations and other preventive care services Maintain a relationship with a provider in case of an illness Your height, weight, and body mass index (BMI) should be checked at every exam. During your exam, your provider may ask you about: Depression and anxiety Diet and exercise Alcohol and tobacco use Safety, such as use of seat belts and smoke detectors Your medicines and risk for interactions PROSTATE CANCER SCREENING If you're 55 through 69 years old, before having the test, talk to your provider about the pros and cons of having a PSA test. Ask about: Whether screening decreases your chance of dying from prostate cancer. Whether there is any harm from prostate cancer screening, such as side effects from testing or overtreatment of cancer when discovered. Whether you have a higher risk of prostate cancer than others. If you are age 55 or younger, screening is not generally recommended. You should talk with your provider about if you have a higher risk for prostate cancer. Risk factors include: Having a family history of prostate cancer (especially a brother or father) Being If you choose to be tested, the PSA blood test is repeated over time (yearly or less often), though the best frequency is not known. Prostate examinations are no longer routinely done on men with no symptoms. Prostate cancer SKIN EXAM Your provider may check your skin for signs of skin cancer, especially if you're at high risk. People at high risk include those who have had skin cancer before, have close relatives with skin cancer, or have a weakened immune system. TESTICULAR EXAM The [place] Preventive Services Task Force (USPSTF) now recommends against performing testicular self-exams. Doing testicular self-exams has been shown to have little to no benefit.
--- OUTSIDE RECORDS SUMMARY | 2024-08-17 07:53 | XMS_ITS | Continuity of Care Document ---
Author Name [facility] Organization [facility] Care Team Providers Care Social Media Intern Name Role Phone [facility] Unavailable Unavailable Problems Combined list of problems from Department of Defense and Veterans Affairs facilities. It does not include entries that were removed or entered in error. Problem Status Onset Date Problem Type Date of Resolution Comments Source visit for: ears / hearing exam Active Condition DoD visit for: services physical Active Condition DoD visit for: ears, nose, and throat exam Active Condition DoD Aftercare Orthopedic Active Condition DoD Occupational Therapy Active Condition DoD visit for: exam following treatment of fracture Inactive Condition DoD Removal Of Implant Inactive Condition DoD Orthopedic Aftercare For Healing Traumatic Fracture Inactive Condition DoD a fall Inactive Condition DoD closed fracture multiple metacarpal bones right hand Inactive Condition 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 20/20 uncorrected and asymptomatic. RTC for first ever dilation. 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 I am referring him to [facility] to see if they agree. Alport syndrome, which has been assoc w/renal and hearing problems, needs to be ruled out!! DoD visit for: screening exam pulmonary tuberculosis Inactive Condition DoD Need For Vaccination Typhoid Inactive Condition DoD Allergies, Adverse Reactions, Alerts Combined list of allergies from Department of Defense and Veterans Affairs facilities. It does not include entries that were removed or entered in error. Substance Category Reaction Severity Reaction type Status Date Reported Comments Source No Known Allergies Drug allergy (disorder) active 10/06/2007 Quirino Mcgowan [facility] Immunizations Combined list of available immunizations from the Department of Defense and Veterans Affairs facilities. Immunization Series Date Given Administered By Site Reaction Lot Number CVX Code Drug Oven Operator Automatic Status Comments Source influenza virus vaccine, split virus (incl. purified surface antigen)-reti red CODE 0 2009 UNK 15 Unknown (UNK) comple t ed influenza virus vaccine, split virus (incl. purified surface antigen)- retired CODE DoD typhoid vaccine, parenteral, other than acetone-kille d, dried 2 2009 UNK 41 Unknown (UNK) comple t ed typhoid vaccine, parentera l, other than acetone-k illed, dried DoD Novel influenza-H1N 1-09, injectable 0 2008 UNK 127 Unknown (UNK) comple t ed Novel influenza -[id number], injectabl e DoD influenza virus vaccine, live, attenuated, for intranasal use 0 2008 UNK 111 Unknown (UNK) comple t ed influenza virus vaccine, live, attenuate d, for intranasa l use DoD anthrax vaccine 2 2007 UNK 24 Unknown (UNK) comple t ed anthrax vaccine DoD anthrax vaccine 1 2007 UNK 24 Unknown (UNK) comple t ed anthrax vaccine DoD influenza virus vaccine, unspecified formulation 0 2006 [id number] Other (OTH) complet ed influenza virus vaccine, unspecifi ed formulati on DoD tuberculin skin test; purified protein derivative solution, intradermal 1 2006 96 Transcribed (TRS) complet ed tuberculi n skin test; purified protein derivativ e solution, intraderm al DoD typhoid vaccine, parenteral, acetone-kille d, dried ([place] ) 1 2006 DIANE ROCHE [id number] Sanofi Pasteur ([facility]) complet ed typhoid vaccine, parentera l, acetone-k illed, dried ([place] ) DoD typhoid Vi capsular polysaccharid e vaccine 1 2006 UNKNOWN 101 Unknown (UNK) comple t ed typhoid Vi capsular polysacch aride vaccine DoD influenza virus vaccine, split virus (incl. purified surface antigen)-reti red CODE 0 2005 UNKNOWN 15 Unknown (UNK) comple t ed influenza virus vaccine, split virus (incl. purified surface antigen)- retired CODE DoD hepatitis B vaccine, adult dosage 3 2004 UNKNOWN 43 Unknown (UNK) comple t ed hepatitis B vaccine, adult dosage DoD hepatitis A vaccine, adult dosage 2 2004 UNKNOWN 52 Unknown (UNK) comple t ed hepatitis A vaccine, adult dosage DoD yellow fever vaccine 0 2002 UNKNOWN 37 Unknown (UNK) comple t ed yellow fever vaccine DoD hepatitis B vaccine, adult dosage 2 2002 UNKNOWN 43 Unknown (UNK) comple t ed hepatitis B vaccine, adult dosage DoD measles, mumps and rubella virus vaccine 1 2002 UNKNOWN 03 Unknown (UNK) comple t ed measles, mumps and rubella virus vaccine DoD tetanus and diphtheria toxoids, adsorbed, preservative free, for adult use (2 Lf of tetanus toxoid and 2 Lf of diphtheria toxoid) 0 2002 UNKNOWN 09 Unknown (UNK) comple t ed tetanus and diphtheri a toxoids, adsorbed, preservat solo free, for adult use (2 Lf of tetanus toxoid and 2 Lf of diphtheri a toxoid) DoD poliovirus vaccine, inactivated 1 2002 UNKNOWN 10 Unknown (UNK) comple t ed polioviru s vaccine, inactivat ed DoD hepatitis B vaccine, adult dosage 1 2002 UNKNOWN 43 Unknown (UNK) comple t ed hepatitis B vaccine, adult dosage DoD hepatitis A vaccine, adult dosage 1 2002 UNKNOWN 52 Unknown (UNK) comple t ed hepatitis A vaccine, adult dosage DoD Encounters Combined list of: 1) Encounters from Department of Veterans Affairs facilities going backup to the last 18 months, not all VA inpatient encounters are included; 2) Encounters from the Department of Defense facilities going backup to 280 months. Location Location Details Encounter Type Encounter Number Reason For Visit Attending Provider ADM Date DC Date Status Disposition Source [facility]) OUTPATIENT [id number] tyob=1; nptu DIANE ROCHE 10/01 Released w/o Limitations [facility] [place]([facility]) [facility] [place] [facility]) OUTPATIENT [id number] ppd=1;n ptu LETICIA SHIRLEY 10/06 Released w/o Limitations [facility] [place]([facility]) [facility] [place]([facility] Optometry [facility]) OUTPATIENT [id number] routine PITA FRENCH 12/04 Released w/o Limitations [facility] [place]([facility]) [facility] [place] [facility]) OUTPATIENT [id number] CORNEAL DYSTROP HY MARCELINO AVILA 12/29 Released w/o Limitations [facility] [facility] [id number] Fracure d right fourth metacar pal, hamate, and possibl e fifth metacar pal NIMCO FARIA 08/12 [place]ased [place] Limitations [facility] [facility] [id number] NIMCO FARIA 08/19 [place]ased [place] Limitations [facility] [facility] [id number] hand cast, having pain SHAILESH JEFF 09/08 [place]ased [place] Limitations [facility] [facility]) [place] [id number] NIMCO FARIA 09/21 [place] Limitations [facility] [facility] [facility]) [place] [id number] right sf fractur e cmc disloca tion MALAIKA CAMACHO 09/26 Released w/o Limitations [facility] [facility] [facility]) [place] [id number] proc$ MARIAM MCKEON L 10/03 Released w/o Limitations [facility] [facility] [facility]) [place] [id number] WALK IN MALAIKA CAMACHO 10/05 Released w/o Limitations [facility] [facility] [facility]) [place] [id number] f/u MALAIKA CAMACHO 12/23 Released w/o Limitations [facility] [facility] [facility] [place] [facility] [id number] MOHCAT/ ANNUAL STORMY GONZALEZ 01/04 [place]ased w/o Limitations [facility] [facility] [facility] [id number] REE [id number] DIANA SANTOS 11/29 [place] Limitations [facility] [facility] [facility] [place] [facility] [id number] anual audio JAMES TORRES 12/12 Released w/o Limitations [facility] [facility] [facility]) [place] [id number] full ee [id number] DANYELLE DUNN 10/28 Released w/o Limitations [facility] Procedures Combined list of: 1) Procedures from Department of [facility] Affairs facilities [facility], not all [facility] non-surgical procedures are included; 2) All procedures from the Department of Defense facilities. Procedure Procedure Type Code Date Perfomer Comments Sourc e THERAPEUTIC PROCEDURE, 1 OR MORE AREAS, EACH 15 MINUTES; THERAPEUTIC EXERCISES TO DEVELOP STRENGTH AND ENDURANCE, RANGE OF MOTION AND FLEXIBILITY 3 DoD SCREENING TEST OF VISUAL ACUITY, QUANTITATIVE, BILATERAL 3 DoD SCREENING TEST, PURE TONE, AIR ONLY 3 DoD TYPHOID VACCINE, CAPSULAR POLYSACCHARIDE (VICPS), FOR INTRAMUSCULAR USE 7 DoD SCREENING TEST, PURE TONE, AIR ONLY 7 DoD SCREENING TEST, PURE TONE, AIR ONLY 5 DoD TYPHOID VACCINE, CAPSULAR POLYSACCHARIDE (VICPS), FOR INTRAMUSCULAR USE 5 DoD THERAPEUTIC, PROPHYLACTIC OR DIAGNOSTIC INJECTION (SPECIFY MATERIAL INJECTED); SUBCUTANEOUS OR INTRAMUSCULAR 4 DoD THERAPEUTIC, PROPHYLACTIC OR DIAGNOSTIC INJECTION (SPECIFY MATERIAL INJECTED); SUBCUTANEOUS OR INTRAMUSCULAR 3 DoD DETERMINATION OF REFRACTIVE STATE 1 DoD PURE TONE AUDIOMETRY (THRESHOLD); AIR ONLY 9 DoD DETERMINATION OF REFRACTIVE STATE 9 DoD PURE TONE AUDIOMETRY (THRESHOLD); AIR ONLY 8 DoD OCCUPATIONAL THERAPY RE-EVALUATION 8 DoD APPLICATION OF A MODALITY TO 1 OR MORE AREAS; [place] 8 DoD APPLICATION OF A MODALITY TO 1 OR MORE AREAS; [place] 8 DoD THERAPEUTIC PROCEDURE, 1 OR MORE AREAS, EACH 15 MINUTES; THERAPEUTIC EXERCISES TO DEVELOP STRENGTH AND ENDURANCE, RANGE OF MOTION AND FLEXIBILITY 8 DoD THERAPEUTIC PROCEDURE, 1 OR MORE AREAS, EACH 15 MINUTES; THERAPEUTIC EXERCISES TO DEVELOP STRENGTH AND ENDURANCE, RANGE OF MOTION AND FLEXIBILITY 8 DoD POSTOPERATIVE FOLLOW-UP VISIT, NORMALLY INCLUDED IN THE SURGICAL PACKAGE, INDICATE THAT EVALUATION & MANAGEMENT SERVICE WAS PERFORMED DURING A POSTOPERATIVE PERIOD REASON RELATED ORIGINAL PROCEDURE 8 [facility] REMOVAL OF IMPLANT; SUPERFICIAL (EG, BURIED WIRE, PIN OR SAMAN) (SEPARATE PROCEDURE) 8 [facility] CAST SUPPLIES, SHORT ARM CAST, ADULT (11 YEARS +), FIBERGLASS 8 [facility] CAST SUPPLIES, SHORT ARM CAST, ADULT (11 YEARS +), FIBERGLASS 8 [facility] ANTERIOR SEGMENT IMAGING WITH INTERPRETATION AND REPORT; WITH SPECULAR MICROSCOPY AND ENDOTHELIAL CELL ANALYSIS 7 [facility] OPHTHALMOLOGICAL SERVICES: MEDICAL EXAMINATION AND EVALUATION WITH INITIATION OF DIAGNOSTIC AND TREATMENT PROGRAM; COMPREHENSIVE, NEW PATIENT, 1 OR MORE VISITS 7 [facility] Determination Of Refractive State Determination Of Refractive State 1 DANYELLE DUNN [facility] Ophthalmological Prior Patient Start Comprehensive Care Ophthalmological Prior Patient Start Comprehensive Care [id number] DANYELLE DUNN [facility] Threshold Audiogram (Pure Tone) Threshold Audiogram (Pure Tone) [id number] 9 JAMES TORRES [facility] Determination Of Refractive State Determination Of Refractive State [id number] 9 DIANA SANTOS Ophthalmological Prior Patient Start Comprehensive Care Ophthalmological Prior Patient Start Comprehensive Care 03002 9 DIANA SANTOS Threshold Audiogram (Pure Tone) Threshold Audiogram (Pure Tone) [id number] 8 STORMY GONZALEZ [facility] Occupational Therapy Re-Evaluation Occupational Therapy Re-Evaluation 95268 8 MALAIKA CAMACHO Modalities Whirlpool Treatment Modalities Whirlpool Treatment 46019 8 MALAIKA CAMACHO A isted Exercises [place] ROM Assisted [place]ises [place] ROM 63995 8 MALAIKA CAMACHO Occupational Therapy Re-Evaluation Occupational Therapy Re-Evaluation 03326 8 MALAIKA CAMACHO Modalities Whirlpool Treatment Modalities Whirlpool Treatment 41238 8 MARIAM MCKEON isted Exercises For ROM Assisted [place] 66970 8 MARIAM MCKEON A isted Exercises [place] ROM Ass[place] 93144 8 MALAIKA CAMACHO [facility] Occupational Therapy Evaluation Occupational Therapy Evaluation 00597 8 MALAIKA CAMACHO [facility] Postoperative Visit, Without Charge Postoperative Visit, Without Charge 85825 8 JERRI RAMOS Cast supplies, short arm cast, adult (11 years +), fibergla 8 JERRI RAMOS [facility] Short Arm Orthopedic Casting Short Arm 04140 8 JERRI RAMOS Removal Of Implant Superficial Removal Of Implant Superficial 8 JERRI RAMOS Postoperative Visit, Without Charge Postoperative Visit, Without Charge 94197 8 JERRI RAMOS Cast supplies, short arm cast, adult (11 years +), fibergla 8 KUAANA, OCTOBER MAPUANA [facility] Short Arm Orthopedic Casting Short Arm 22268 8 [facility], OCTOBER MAPUANA [facility] Postoperative Visit, Without Charge Postoperative Visit, Without Charge 69471 8 [facility], OCTOBER [place] Pedro Cast supplies, short arm cast, adult (11 years +), fibergla 8 JERRI RAMOS [facility] Fluoroscopy Up To One Hour Physician Time 8 JERRI RAMOS Closed Treatment Of Fracture Of Metacarpal Bone With Fixation Closed Treatment Of Fracture Of Metacarpal Bone With Fixation 05305 8 JERRI RAMOS Anterior Segment Photography With Specular Microscopy 7 MARCELINO AVILA [facility] Determination Of Refractive State Determination Of Refractive State 99800 7 PITA FRENCH Ophthalmological New Patient Start Comprehensive Care Ophthalmological New Patient Start Comprehensive Care 16567 7 PITA FRENCH Typhoid Vaccine Vi Capsular Polysaccharide, For Intramus Use Typhoid Vaccine Vi Capsular Polysaccharide, For Intramus Use 88001 7 DIANE ROCHE Immunization Administration By Injection, One Vaccine Immunization Administration By Injection, One Vaccine 87842 7 MELCHOR, DIANE H DoD Social History Combined list of available smoking, tobacco, and other social history from Department of Defense and Veterans Affairs facilities. Social History Type Response Date Comment Sourc e This section is an empty social history section. DoD
[2024-08-17 08:01] VITALS: BP 122/72; PULSE 55; RESP 12; TEMP 36.1; O2SAT 98; BMI 26.7
== END 2024-08-17 08:38 | disposition home or self-care (01) ==
PROVIDERS: PCP Nurse Practitioner Family; Visit Provider Nurse Practitioner Family
DX: Z00.00 Encounter for general adult medical examination without abnormal findings (principal); M79.641 Pain in right hand; Z28.21 Immunization not carried out because of patient refusal

== ENCOUNTER → 2024-08-17 07:49 | Outpatient (BNVA) | payer BC, SELFPAY | PROVIDERS: PCP Nurse Practitioner Family; Visit Provider Nurse Practitioner Family | DX: Z00.00 Encounter for general adult medical examination without abnormal findings (principal); M79.641 Pain in right hand; Z28.21 Immunization not carried out because of patient refusal | CPT/HCPCS: 96127 ==

== ENCOUNTER 2024-11-29 08:26 | Outpatient (RCR) | payer BC, SELFPAY | END 2024-11-29 09:58 | disposition home or self-care (01) | LOC: HO.OT 08:26 | PROVIDERS: PCP Nurse Practitioner Family; Visit Provider Nurse Practitioner Family | DX: M79.641 Pain in right hand (principal) | CPT/HCPCS: 97110; 97140; 97165 ==